=== PATIENT | female | born 1990 | race Two or more races ===

== ENCOUNTER 2017-04-29 19:00 | Inpatient (IN) | payer OTHER ==
[2017-04-29 20:55] VITALS: BMI 33.9
[2017-04-29 22:05] LABS: BASOPHIL 0.2 % (0-2.0); EOSINOPHIL 1.4 % (0-4.5); MCH 26.6 pg (25.7-33.7); MCHC 32.6 g/dl (32.0-36.0); MEAN CELL VOLUME 81.7 fl (80-96); MEAN PLT VOLUME 10.5 fl (7.5-11.1); NEUTROPHILS 76.8 % (42.8-82.8); PLATELET COUNT 153 K/MM3 (134-434); RDW 15.7 % (11.6-15.6); WHITE BLOOD COUNT 9.8 K/mm3 (4.0-10.0)
[2017-04-29] MEDS ORDERED: DINOPROSTONE 10 MG VAGINAL SUPPOSITORY VG ONE (22:08)
[2017-04-29] MEDS ORDERED: DEXTROSE 5%-LACTATED RINGERS 1,000 ML IV SCH (22:15)
[2017-04-29 22:27] LABS: INR 0.94 (0.82-1.09); PROTHROMBIN TIME (PATIENT) 10.3 SEC (9.98-11.88)
[2017-04-29 22:37] LABS: ANION GAP 10 (8-16); CALCIUM 8.9 mg/dL (8.5-10.1); CO2 19 mmol/L (21-32); CREATININE 0.5 mg/dL (0.55-1.02); GLUCOSE,RANDOM 85 mg/dL (74-106)
[2017-04-29 23:17] LABS: HIV 1 & 2 AB NEGATIVE; HIV 1 AGp24 NEGATIVE
--- NOTE | 2017-04-30 00:06 | HP ---
Past Medical History - Primary Care Physician PCP:: Jose Mcmullen - Admission Chief Complaint: 26yo P1 with at EGA 41 weeks admitted for labor indx. 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, CVA, Dementia, Migraine, Multiple Sclerosis, Peripheral Neuropathy, Parkinson's, Seizure, Syncope, TIA, Vertigo, Other Cardiovascular: No: AFIB, Aneurysm, Aortic Insufficiency, Aortic Stenosis, CAD, CHF, Deep Vein Thrombosis, HTN, Hyperlipdemia, [place], Mitral Insufficiency, Mitral Stenosis, Murmur, Pulmonary Hypertension, Other Pulmonary: No: Asthma, Bronchitis, Cancer, COPD, O2 Dependent, Pneumonia, Previously Intubated, Pulmonary Embolus, Pulmonary Fibrosis, Sleep Apnea, Other Gastrointestinal: No: Ascites, Cancer, Constipation, Crohn's Disease, Diverticulitis, Diverticulosis, Esophageal Varices, Gastritis, GERD, GI Bleed, Hemorrhoids, Hiatal Hernia, Inflamatory Bowel Disease, Irritable Bowel Disease, Pancreatitis, Peptic Ulcer Disease, Ulcerative Colitis, Other Renal/: No: Renal Failure, Renal Inusuff, BPH, Cancer, Hematuria, Hemodialysis , Neurogenic Bladder, Renal Calculi, UTI, Other Reproductive: No: Ectopic , Endometriosis, Fibroids, PID, Polycystic Ovary Syndrome, Postmenopausal, Other ...: 2 ...Para: 1 ...Term: 1 ...LMP: 07/11/16 ... Weeks Gestation by Dates: 41 ...EDC by Dates: 04/17/17 Heme/Onc: No: Anemia, B12 Deficiency, Bleeding Disorder, Cancer, Current Chemotherapy, Current Radiation Therapy, Hemochromatosis, Hypercoaguable State, Myeloproliferative Synd, Sickle Cell Disease, Sickle Cell Trait, Thrombocytopenia, Other Infectious Disease: No: AIDS, C-Diff, Herpes Zoster, HIV, MRSA, STD's, Tuberculosis, VREF, Other Psych: No: Addictions, Anxiety, Bipolar, Depression, Panic, Psychosis, Schizophrenia, Other Rheumatology: No: Fibromyalgia, Gout, Lupus, Rheumatoid Arthritis, Sarcoidosis, Vasculitis, Other ENT: No: Allergic Rhinitis, Sinusitis, Other Endocrine: No: Cheshire's Disease, Raman's Disease, Diabetes Insipidus, Diabetes Mellitus, Hyperparathyroidism, Hyperthyroidism, Hypothyroidism, Osteopenia, SIADH, Other Dermatology: No: Basal Cell, Cellulitis, Eczema, Melanoma, Psoriasis, Squamous Cell, Other - Past Surgical History Past Surgical History: Yes: None Hx Myomectomy: No Hx Transabdominal Cerclage: No - Smoking History Smoking history: Never smoked - Alcohol/Substance Use Hx Alcohol Use: No History of Substance Use: reports: None - Social History Usual Living Arrangement: Yes: With Spouse, With Child ADL: Independent History of Recent Travel: No Home Medications - Allergies Allergies/Adverse Reactions: Allergies Allergy/AdvReac Type Severity Reaction Status Date / Time No Known Allergies Allergy Verified 04/29/17 20:38 - Home Medications Home Medications: Ambulatory Orders One Tablet 1 tab PO DAILY 04/29/17 Family Disease History - Family Disease History Family History: Denies Review of Systems Findings/Remarks: Well Appearing - Review of Systems Constitutional: reports: No Symptoms Eyes: reports: No Symptoms HENT: reports: No Symptoms Neck: reports: No Symptoms Cardiovascular: reports: No Symptoms Respiratory: reports: No Symptoms Gastrointestinal: reports: No Symptoms Genitourinary: reports: No Symptoms Breasts: reports: No Symptoms Reported Musculoskeletal: reports: No Symptoms Integumentary: reports: No Symptoms Neurological: reports: No Symptoms Endocrine: reports: No Symptoms Hematology/Lymphatic: reports: No Symptoms Psychiatric: reports: No Symptoms Pain Intensity: 0 Physical Exam - Maternity Vital Signs: Vital Signs Temperature 98.3 F 04/29/17 21:00 Pulse Rate 90 04/29/17 22:00 Respiratory Rate 18 04/29/17 22:00 Blood Pressure 122/79 04/29/17 22:00 O2 Sat by Pulse Oximetry (%) Constitutional: Yes: Well Nourished, No Distress, Calm Eyes: Yes: WNL, Conjunctiva Clear HENT: Yes: WNL, Atraumatic, Normocephalic Neck: Yes: WNL, Supple, Trachea Midline Cardiovascular: Yes: WNL, Regular Rate and Rhythm Lungs: Clear to auscultation, Normal air movement Breast(s): Yes: WNL - Abdominal Exam/OB Fundal Height: 42 Number of Fetuses: Single Presentation: Vertex Contractions: Yes Regularity: Irritability Intensity: Unaware Monitor Mode: External Heart Rate (range): 130 Heart Rate Location: Midline Category: I Accelerations: Non-Uniform Decelerations: None - Vaginal Exam/OB Vaginal Bleediing: No Speculum Exam: No Dilatation (cm): 0 Effacement (%): 20 Amniotic Membrane Status: Intact Presentation: Vertex/Position Station: -4 (Adequate Gynecoid Pelvimetry) - Physical Exam Musculoskeletal: Yes: WNL Extremities: Yes: WNL Edema: Yes Edema: LLE: 1+, RLE: 1+ Integumentary: Yes: WNL Deep Tendon Reflex Grade: Normal +2 ...Motor Strength: WNL Psychiatric: Yes: WNL, Alert, Oriented - Labs Lab Results: CBC, BMP 04/29/17 21:30 04/29/17 21:30 Hemorrhage Risk Assessment - Risk Factors Medium Risk Factors: Yes: None High Risk Factors: Yes: None Risk Score: 1 Risk Level: Medium Risk Imaging - Results Ultrasound: Report Reviewed Assessment/Plan 26yo P1 with at EGA 41wks admitted for labor indxn. The cervical exam is unfavorable. We had a long discussion re: risks, benefits, alternatives of labor indxn. Risks, benefits, alternatives of labor induction vs. expectant managemant were reviewed. Patient was explained that the induction of labor has risks, including but not limited to uterine tachysystole, distress, uterine atony, emergency section, bleeding, injury or even . Patient prefers to proceed with induction of labor. We discussed the medications that may be used including but not limited to Cervidil and/or pitocin. I explained the risks and benefits of meds. The fetus is with Category I tracing and does not require intervention. The patient has adequate pelvimetry. Plan to proceed with cervical ripening using Cervidil, followed by pitocin, as needed.
[2017-04-30] MEDS: DEXTROSE 5%-LACTATED RINGERS 1,000 ML IV SCH (07:10)
[2017-04-30] MEDS ORDERED: AMPICILLIN - 100 ML IVPB ONE (07:15)
[2017-04-30] MEDS ORDERED: TUBERCULIN PPD 5 TU/0.1ML SYRINGE (IN PATIENT USE ONLY) ID ONE (08:00)
[2017-04-30] MEDS ORDERED: AMPICILLIN - 2 GM in SODIUM CHLORIDE 100 ML IVPB ONE (09:05)
--- NOTE | 2017-04-30 09:05 | PN ---
Ante-Partal Exam - Subjective Subjective: No complaints Vital Signs: Vital Signs Temperature 98.4 F 04/30/17 08:00 Pulse Rate 74 04/30/17 08:00 Respiratory Rate 18 04/30/17 08:00 Blood Pressure 128/66 04/30/17 08:00 O2 Sat by Pulse Oximetry (%) Bleeding: No Headache: No Visual changes: No Right upper quadrant pain: No Pain (scale 1-10): 2 - Contractions Contractions: Yes Regularity: Irregular Intensity: Mild Monitor Mode: External - Exam during Labor Heart Rate: 140 Variability: Moderate Heart Rate Location: Midline Category: I Monitor Accelerations: Present Monitor Decelerations: None Exam: Vaginal Dilatation (cm): 1 Effacement (%): 50 Amniotic Membrane Status: Intact Presentation: Vertex Station: -4 Remarks: Adequate pelvimetry - Intrapartum Hemorrhage Risk Medium Risk Factors: None High Risk Factors: None Risk Score: 0 Risk Level: Low Risk - Assessment/Plan Assessment/Plan: 26yo P1 with at 41wk admitted for labor indx. The pt's cervix is more favorable after Cervidil. Plan to start pitocin. Fetus with Category I tracing and requires no intervention.
[2017-04-30] MEDS ORDERED: AMPICILLIN - 1 GM in SODIUM CHLORIDE 100 ML IVPB SCH (09:15)
[2017-04-30] MEDS: OXYTOCIN 15 UNITS/ LR 250 ML 250 ML IVPB SCH (09:20)
[2017-04-30] MEDS: AMPICILLIN - 100 ML IVPB SCH ×4 (11:07→23:15)
--- NOTE | 2017-04-30 18:13 | PN ---
Ante-Partal Exam - Subjective Subjective: Patient reports mild contractions. No leakage of fluid of vaginal bleeding. Vital Signs: Vital Signs Temperature 98.4 F 04/30/17 17:19 Pulse Rate 87 04/30/17 17:19 Respiratory Rate 20 04/30/17 17:19 Blood Pressure 115/78 04/30/17 17:19 O2 Sat by Pulse Oximetry (%) Bleeding: No Headache: No Visual changes: No Right upper quadrant pain: No - Contractions Contractions: Yes Regularity: Regular Intensity: Mild/Mod Monitor Mode: External - Exam during Labor Heart Rate: 135 Variability: Moderate Category: I Monitor Accelerations: Present Monitor Decelerations: None Exam: Vaginal Dilatation (cm): 3 Effacement (%): 50 Station: -3 - Assessment/Plan Assessment/Plan: 26 yo P2 IOL 1. on pitocin, good cervical change, likely early labor 2. category I FHT 3. GBS pitocin, on ampicillin per protocol 4. Will offer pain control on patient's request 5. Will continue expectant management
[2017-04-30] MEDS ORDERED: BUTORPHANOL TARTRATE 1 MG/ML VIAL IVPUSH ONE (19:06)
[2017-04-30] MEDS ORDERED: PROMETHAZINE HCL 25 MG/1 ML VIAL IVPUSH ONE (19:06)
[2017-05-01] MEDS: AMPICILLIN - 100 ML IVPB SCH ×4 (03:15→15:00)
[2017-05-01] MEDS: OXYTOCIN 15 UNITS/ LR 250 ML 250 ML IVPB SCH (07:15)
[2017-05-01] MEDS: DEXTROSE 5%-LACTATED RINGERS 1,000 ML IV SCH (07:45)
[2017-05-01] MEDS ORDERED: ELECTROLYTE-148 SOLN 1,000 ML IV SCH (09:30)
--- NOTE | 2017-05-01 09:31 | PN ---
Ante-Partal Exam - Subjective Subjective: Reports pain well controlled s/p IV medication contractions increasing in intensity Vital Signs: Vital Signs Temperature 98.2 F 05/01/17 06:00 Pulse Rate 80 05/01/17 08:00 Respiratory Rate 20 05/01/17 08:00 Blood Pressure 122/68 05/01/17 08:00 O2 Sat by Pulse Oximetry (%) Bleeding: No Headache: No Visual changes: No Right upper quadrant pain: No - Contractions Contractions: Yes Regularity: Regular Intensity: Mod/Strong - Exam during Labor Heart Rate: 135 Variability: Moderate Category: I Monitor Accelerations: Present Monitor Decelerations: None Exam: Vaginal Dilatation (cm): 4 Effacement (%): 90 Amniotic Membrane Status: Ruptured Amniotic Fluid: Clear Presentation: Vertex Station: -2 - Intrapartum Hemorrhage Risk Medium Risk Factors: Prolonged Oxytocin Use >24hrs High Risk Factors: None Risk Score: 1 Risk Level: Medium Risk - Assessment/Plan Assessment/Plan: 26 P1 IOL 1. s/p cervidil, currently on pitocin per protocol excellent cervical change, likely entering active labor phase 2. GBS positive, on ampicillin 3. Desires epidural for pain relief 4. Category I FHT 5. Will continue expectant management, anticipate vaginal delivery
[2017-05-01] MEDS ORDERED: FENTANYL/BUPIVACAINE/NS/PF - PCEA - 50 ML DISP.SYRIN EP SCH (09:45)
[2017-05-01] MEDS ORDERED: BENZOCAINE 20% 57 GM BOTTLE TP PRN (18:12)
[2017-05-01] MEDS ORDERED: BENZOCAINE 28 GM HEMORRHOIDAL OINTMENT TP PRN (18:12)
[2017-05-01] MEDS ORDERED: WITCH HAZEL 50% (TUCKS) 40 PAD/JAR PAD TP PRN (18:12)
[2017-05-01] MEDS ORDERED: BISACODYL 10 MG SUPP.RECT RC PRN (18:12)
[2017-05-01] MEDS ORDERED: IBUPROFEN 600 MG TABLET (FP) PO PRN (18:12)
[2017-05-01] MEDS ORDERED: ACETAMINOPHEN 325 MG TABLET (FP) PO PRN (18:12)
[2017-05-01] MEDS ORDERED: METHYLERGONOVINE MALEATE 0.2 MG/1 ML AMP IM PRN (18:12)
[2017-05-01] MEDS ORDERED: D5W-LR W/ 20 UNITS OXYTOCIN 1,000 ML IV SCH (18:15)
[2017-05-01] MEDS: FERROUS SO4 325 MG TABLET (FP) PO SCH (21:29)
[2017-05-01 22:30] LABS: BASOPHIL 0.2 % (0-2.0); EOSINOPHIL 0.4 % (0-4.5); MCH 26.3 pg (25.7-33.7); MCHC 32.2 g/dl (32.0-36.0); MEAN CELL VOLUME 81.7 fl (80-96); MEAN PLT VOLUME 10.5 fl (7.5-11.1); NEUTROPHILS 84.3 % (42.8-82.8); PLATELET COUNT 133 K/MM3 (134-434); RDW 15.6 % (11.6-15.6); WHITE BLOOD COUNT 13.2 K/mm3 (4.0-10.0)
[2017-05-01 22:52] LABS: ALK PHOS 178 U/L (45-117); ANION GAP 12 (8-16); BILIRUBIN,TOTAL 0.4 mg/dL (0.2-1.0); CO2 23 mmol/L (21-32); CREATININE 0.9 mg/dL (0.55-1.02); GLUCOSE,RANDOM 82 mg/dL (74-106); SGOT/AST 21 U/L (15-37); SGPT/ALT 10 U/L (12-78); TOT PROT 5.3 g/dl (6.4-8.2)
[2017-05-02] MEDS: CEFAZOLIN (PRE-DOCKED) 50 ML IVPB SCH ×5 (06:30→23:18)
[2017-05-02] MEDS: AMPICILLIN - 100 ML IVPB SCH (06:35)
--- NOTE | 2017-05-02 07:58 | PN ---
Progress Note (short form) - Note Progress Note: PPD 1 had temp 100.8 last night with productive cough Last Vital Signs Temp Pulse Resp BP Pulse Ox 98.6 F 98 H 20 122/69 97 05/02/17 04:36 05/02/17 04:36 05/02/17 04:36 05/02/17 04:36 05/01/17 18:30 CBC, BMP 05/01/17 22:00 05/01/17 22:00 Current Medications Generic Name Dose Route Start Last Admin Trade Name Freq PRN Reason Stop Dose Admin Acetaminophen 650 mg 05/01/17 18:12 05/01/17 21:29 Tylenol - PO 650 mg Q3H PRN Administration PAIN Benzocaine 1 applic 05/01/17 18:12 Americaine Ointment - TP PRN PRN PAIN Benzocaine 1 spray 05/01/17 18:12 Americaine 20% [place] - TP PRN PRN PAIN Bisacodyl 10 mg 05/01/17 18:12 Dulcolax Suppository - RC PRN PRN CONSTIPATION Ferrous Sulfate 325 mg 05/01/17 22:00 05/01/17 21:29 Feosol - PO 325 mg BID RUBEN Administration Cefazolin Sodium 50 mls @ 100 mls/hr 05/01/17 23:30 05/02/17 06:30 Ancef 1gm Ivpb (Pre-Docked) IVPB 100 mls/hr Q6H RUBEN Administration Ibuprofen 600 mg 05/01/17 18:12 Motrin - PO Q4H PRN PAIN Methylergonovine Maleate 0.2 mg 05/01/17 18:12 Methergine Injection - IM Q4H PRN EXCESSIVE BLEEDING (L&D) Multivit/Folic Acid/Iron 1 tab 05/02/17 10:00 Vitamins (Sjr) - PO DAILY RUBEN Senna/Docusate Sodium 1 tablet 05/02/17 22:00 05/01/17 21:30 Pericolace - PO 1 tablet HS PRN Administration CONSTIPATION Witch Christy/Glycerin 1 pad 05/01/17 18:12 Tucks Pads - TP PRN PRN PAIN feels better today, afebrile , breathing easy, abdomen soft, uterus firm, non tender lochia normal no calf tenderness impression pneumonia , PPD 1 on iv antibiotic, ppd , sputum c/s pending plan [place] deep breathing, ambualte . pulm consult pending
[2017-05-02 08:07] LABS: BASOPHIL 0.4 % (0-2.0); EOSINOPHIL 1.1 % (0-4.5); MCHC 32.9 g/dl (32.0-36.0); MEAN CELL VOLUME 82.1 fl (80-96); MEAN PLT VOLUME 9.6 fl (7.5-11.1); NEUTROPHILS 80.5 % (42.8-82.8); PLATELET COUNT 121 K/MM3 (134-434); RDW 16.1 % (11.6-15.6); WHITE BLOOD COUNT 12.2 K/mm3 (4.0-10.0)
[2017-05-02] MEDS: PRENATAL VITAMINS W/ FOLIC ACID TABLET (FP) PO SCH (09:17)
[2017-05-02] MEDS: FERROUS SO4 325 MG TABLET (FP) PO SCH ×2 (09:17→23:17)
--- NOTE | 2017-05-02 14:35 | PN ---
Progress Note (short form) - Note Progress Note: PULMONARY CONSULTATION DICTATED 05/02/17 IMP ? RLL INFILTRATE ? PNEUMONIA,? 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
[2017-05-02] MEDS ORDERED: SENNOSIDES/DOCUSATE COMBO (SENNA PLUS) TABLET (UD) PO PRN (22:00)
[2017-05-03] MEDS: CEFAZOLIN (PRE-DOCKED) 50 ML IVPB SCH (05:41)
[2017-05-03 09:16] VITALS: BP 124/84; PULSE 86; TEMP 98.3
[2017-05-03] MEDS: FERROUS SO4 325 MG TABLET (FP) PO SCH (09:50)
[2017-05-03] MEDS: PRENATAL VITAMINS W/ FOLIC ACID TABLET (FP) PO SCH (09:50)
--- NOTE | 2017-05-03 10:07 | PN ---
Progress Note (short form) - Note Progress Note: no c/o no cough, afebrile, no SOB CBC, BMP 05/02/17 07:40 05/01/17 22:00 Last Vital Signs Temp Pulse Resp BP Pulse Ox 98.3 F 86 20 124/84 97 05/03/17 09:00 05/03/17 09:00 05/03/17 09:00 05/03/17 09:00 05/01/17 18:30 uterus firm, non tender, no cva no calf tenderness plan d/c home on po antibiotic , followup office 4 weeks, follow up with pulm 1 week
--- NOTE | 2017-05-03 10:10 | DS ---
Physical Exam-[employer] Vital Signs: Vital Signs Temperature 98.3 F 05/03/17 09:00 Pulse Rate 86 05/03/17 09:00 Respiratory Rate 20 05/03/17 09:00 Blood Pressure 124/84 05/03/17 09:00 O2 Sat by Pulse Oximetry (%) 97 05/01/17 18:30 Constitutional: Yes: Well Nourished, No Distress, Calm Eyes: Yes: WNL, Conjunctiva Clear, EOM Intact HENT: Yes: WNL, Atraumatic, Normocephalic Neck: Yes: WNL, Supple, Trachea Midline Cardiovascular: Yes: WNL, Regular Rate and Rhythm Respiratory: Yes: WNL, Regular, CTA Bilaterally Gastrointestinal: Yes: WNL ...Rectal Exam: Yes: WNL Renal/: Yes: WNL ....Post : Yes: Uterus firm, Uterus non-tender, Slight lochia rubra Breast(s): Yes: WNL Musculoskeletal: Yes: WNL Extremities: Yes: WNL Edema: No Integumentary: Yes: WNL Neurological: Yes: WNL, Alert, Oriented ...Motor Strength: WNL Psychiatric: Yes: WNL, Alert, Oriented Labs: CBC, BMP 05/02/17 07:40 05/01/17 22:00 Delivery - Delivery Vaginal Delivery: Spontaneous (no complication) Type of Anesthesia: Epidural Episiotomy/Laceration: None EBL (cc): 300 Delivery, Single - Stages of Labor Date 1st Stage Initiatied: 05/01/17 Time 1st Stage Initiated: 05:00 Date 2nd Stage Initiated: 05/01/17 Time 2nd Stage Initiated: 16:30 Date of Delivery: 05/01/17 Time of Delivery: 17:20 Time Placenta Delivered: 17:25 Placenta: Yes: Spontaneous (no complication) - Condition of Commercial Lines Underwriter/Concrete Pointer Present: No Gender: Male Weight: 8 lb 5 oz Position: Left, OA Total Hours ROM (Hrs/Mins): 8HRS 10MIN - 1 Minute Total Score: 8 5 Minutes Total Score: 9 - Feeding Plan Initial Plan: Elected not to breastfeed exclusively throughout hospitalization Discharge Summary Reason For Visit: LABOR Current Active Problems Cough (Acute) Fever (Acute) Pneumonia (Acute) Procedures: Principal: Hospital Course: pneumonia Condition: Good - Instructions Diet, Activity, Other Instructions: regular diet, follow up office 4 weeks Referrals: Daniel Ramírez MD [Staff Physician] - Disposition: HOME - Home Medications Comprehensive Discharge Medication List: Ambulatory Orders One Tablet 1 tab PO DAILY 04/29/17 Ibuprofen [Motrin -] 600 mg PO QID #28 tablet 05/01/17 Cephalexin [Keflex] 500 mg PO TID #21 capsule 05/02/17
--- NOTE | 2017-05-04 23:38 | CONS ---
PULMONARY CONSULTATION DATE OF CONSULTATION: 05/02/2017 REFERRING PHYSICIAN: Daniel Ramírez MD The patient is a 26-year-old female without any significant past medical history, admitted to [facility] on April 30, secondary to intrauterine . Patient underwent normal spontaneous vaginal delivery on May 01, without complications. Postoperative course, the patient had a slight fever. She also complained of a cough since Friday productive of greenish sputum. Did not have any fevers or chills at the time or shortness of breath. She had chest x-ray performed which revealed possible right lower lobe infiltrate. She was started on cefazolin with good clinical response. Stated she did not smoke and there is no history of occupational exposure to chemical or fumes. She denies any history of recent travel. There is no history of DVT or PE in the past. There is no history of pneumonia. PAST MEDICAL HISTORY: Again is unremarkable. 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 REVIEW OF SYSTEMS: No orthopnea. No PND. Positive mild cough. No chest pain. No palpitations. No shortness of breath. No fever at this time. No hemoptysis. PHYSICAL EXAMINATION: General: The patient is a well-developed and nourished female, awake, alert, currently in no acute distress. Vital Signs: T-max is 100.8 on May 01; otherwise, she has been afebrile since. Blood pressure 138/75, respiratory rate is 20, heart rate is 79. HEENT: Normocephalic, atraumatic. Neck: Supple. Heart: Regular. S1, S2. Chest: Clear. Abdomen: Soft. Bowel sounds are positive. Extremities: Bilateral extremity edema. LABORATORY DATA: WBC is 12.2, hemoglobin 10.2, hematocrit 30.8, with a platelet count of 121,000. BUN is 4, creatinine 0.9. Chest x-ray: There is questionable early infiltrate at the right base. IMPRESSION: 1. Cough, mild sputum, possible mild early right lower lobe infiltrate versus acute bronchitis. 2. Status post normal spontaneous vaginal delivery. PLAN: Continue antibiotic therapy, incentive spirometer, sputum C&S. Also, obtain followup chest x-ray as an outpatient. ANITA FERNANDEZ M.D. [id number]
== END 2017-05-03 10:10 | disposition home or self-care (01) | DRG 560 ==
LOC: JLDR 19:00 → J3W 05-01 19:45
PROVIDERS: ADMIT Obstetrics & Gynecology; ATTEND Obstetrics & Gynecology
PROC: 3E0P7GC Introduction of Other Therapeutic Substance into Female Reproductive, Via Natural or Artificial Opening (ICD-10-PCS; 2017-04-29)
PROC: 10E0XZZ Delivery of Products of Conception, External Approach (ICD-10-PCS; principal; 2017-05-01)
DX: O48.0 Post-term pregnancy (principal); O99.824 Streptococcus B carrier state complicating childbirth; Z3A.41 41 weeks gestation of pregnancy; Z37.0 Single live birth
CPT/HCPCS: 36415; 59409; 71020-TC; 80048; 80053; 85025; 85610; 85730; 86593; 86850; 86900; 86901; 87040; 87070; 87086; 87205; 87389; 94010

== ENCOUNTER 2017-05-25 15:41 | Inpatient (IN) | payer OTHER ==
[2017-05-25 16:04] VITALS: BMI 32.9
--- NOTE | 2017-05-25 17:03 | PDOC ---
History of Present Illness - General Chief Complaint: Chest Pain Stated Complaint: CHEST PAIN, SOB Time Seen by Provider: 05/25/17 16:43 History Source: Patient, Friend Exam Limitations: No Limitations - History of Present Illness Initial Comments: 05/25/17 17:05 27F with h/o bronchitis for the past month on antibiotics present to the ED with right sided chest pain on inspiration since yesterday evening. She has been coughing a lot the past week to the point of spitting blood. Also complains of sore throat. Patient was has been prescribed with an antitussive-pseudopheb syrup and Augmentin since yesterday. Was previously on another unknown abx a few weeks ago. No nausea/vomiting/diarrhea/fever. No recent travel, smoking, not on control. 05/25/17 19:44 PAtient revealed 41w induced delivery 3 weeks ago 05/25/17 19:59 Past History - Past Medical History Allergies/Adverse Reactions: Allergies Allergy/AdvReac Type Severity Reaction Status Date / Time No Known Allergies Allergy Verified 05/25/17 16:04 Home Medications: Ambulatory Orders Amoxicillin/Potassium Clav [Augmentin 875-125 Tablet] 1 each PO BID 05/25/17 Brompheniramine/Pseudoephed/Dm [Zmtiqqbbtt-Ovryjryukhj-Ey Syr] 10 ml PO QID 04/05 Asthma: No Cancer: No Cardiac Disorders: No Diabetes: No HTN: No Seizures: No Thyroid Disease: No - Immunization History Immunization Up to Date: Yes - Psycho/Social/Smoking Cessation Hx Suicidal Ideation: No Smoking History: Never smoked Have you smoked in the past 12 months: No Information on smoking cessation initiated: No Hx Alcohol Use: No Drug/Substance Use Hx: No Substance Use Type: None Hx Substance Use Treatment: No Review of Systems - Review of Systems Constitutional: No: Symptoms Reported HEENTM: No: Symptoms Reported Respiratory: Yes: See HPI Cardiac (ROS): No: Symptoms Reported ABD/GI: No: Symptoms Reported : No: Symptoms Reported Integumentary: No: Symptoms Reported Neurological: No: Symptoms reported *Physical Exam - Vital Signs Last Vital Signs Temp Pulse Resp BP Pulse Ox 98.4 F 91 H 17 135/80 100 05/25/17 16:00 05/25/17 16:00 05/25/17 16:00 05/25/17 16:00 05/25/17 16:00 - Physical Exam General Appearance: Yes: Nourished, Appropriately Dressed, Apparent Distress ( patient laying very still to avoid painful respiration) HEENT: positive: EOMI, HANNAH Respiratory/Chest: positive: Chest Tender (on palpation R side), Normal Breath Sounds, Plerual Rub (unclear) Cardiovascular: positive: Regular Rhythm, Regular Rate, S1, S2 Vascular Pulses: Carotid (R): 2+, Carotid (L): 2+, Dorsalis-Pedis (R): 2+, Doralis-Pedis (L): 2+ Gastrointestinal/Abdominal: positive: Normal Bowel Sounds, Flat, Soft. negative : Tender ED Treatment Course - LABORATORY CBC & Chemistry Diagram: 05/25/17 16:58 05/25/17 16:58 Medical Decision Making - Medical Decision Making 05/25/17 19:49 27f with bronchitis presenting to the ED with pleural/musculoskeletal chest pain. Boerhaave syndrome vs PE vs muscle strain CXR report unavailable, no sign of free air in mediastinum WBC slightly elevated consistent with bronchitis r/o CTA, D-dimer, coags UA +1 blood Signed out to Dr. Saad Urbano 05/25/17 19:58 *DC/Admit/Observation/Transfer Diagnosis at time of Disposition: Inspiratory pain
[2017-05-25 17:10] LABS: BASOPHIL 0.5 % (0-2.0); EOSINOPHIL 1.5 % (0-4.5); MCH 26.9 pg (25.7-33.7); MCHC 32.6 g/dl (32.0-36.0); MEAN CELL VOLUME 82.5 fl (80-96); MEAN PLT VOLUME 9.6 fl (7.5-11.1); NEUTROPHILS 77.1 % (42.8-82.8); PLATELET COUNT 203 K/MM3 (134-434); RDW 17.7 % (11.6-15.6); WHITE BLOOD COUNT 12.2 K/mm3 (4.0-10.0)
[2017-05-25] MEDS ORDERED: morphine CARPU-JECT 4 MG/1 ML DISP.SYRIN IVPUSH ONE ×2 (17:32→21:31)
[2017-05-25] MEDS ORDERED: ONDANSETRON 4 MG/2 ML VIAL IVPB ONE (17:32)
[2017-05-25 17:33] LABS: URINE APPEARANCE CLEAR; URINE BILIRUBIN NEGATIVE (NEGATIVE); URINE BLOOD 1+ (NEGATIVE); URINE COLOR LTYELLOW; URINE GLUCOSE (UA) NEGATIVE (NEGATIVE); URINE KETONE NEGATIVE (NEGATIVE); URINE LEUK ESTERASE TRACE (NEGATIVE); URINE NITRITE NEGATIVE (NEGATIVE); URINE PROTEIN NEGATIVE (NEGATIVE); URINE UROBILINOGEN NEGATIVE mg/dL (0.2-1.0)
[2017-05-25 17:35] LABS: URINE MUCUS RARE; URINE RBC 1 /hpf (0-3); URINE WBC 3 /hpf (3-5)
[2017-05-25] MEDS ORDERED: ONDANSETRON 4 MG/2 ML VIAL ONE (17:38)
[2017-05-25] MEDS ORDERED: morphine CARPU-JECT 4 MG/1 ML DISP.SYRIN ONE ×2 (17:38→22:01)
[2017-05-25 17:43] LABS: ALBUMIN 3.7 g/dl (3.4-5.0); ANION GAP 12 (8-16); BILIRUBIN,TOTAL 0.6 mg/dL (0.2-1.0); CALCIUM 9.2 mg/dL (8.5-10.1); CO2 24 mmol/L (21-32); CREATININE 0.6 mg/dL (0.55-1.02); GLUCOSE,RANDOM 89 mg/dL (74-106); SGOT/AST 20 U/L (15-37); SGPT/ALT 22 U/L (12-78); TOT PROT 7.7 g/dl (6.4-8.2)
[2017-05-25 17:44] LABS: ALK PHOS 112 U/L (45-117)
--- NOTE | 2017-05-25 18:39 | PDOC ---
Attending Attestation - Resident Resident Name: Bassam Butler - ED Attending Attestation I have performed the following: I have examined & evaluated the patient, The case was reviewed & discussed with the resident, I agree w/resident's findings & plan, Exceptions are as noted - HPI HPI: 05/25/17 18:38 27 yo co chest pain - Physicial Exam PE: 05/25/17 18:38 NAD, Nontoxic, some of the chest pain is reproducible...... - Medical Decision Making 05/25/17 18:[address] Navarro Assessment and Plan
--- NOTE | 2017-05-25 19:48 | PDOC ---
*Physical Exam - Vital Signs Last Vital Signs Temp Pulse Resp BP Pulse Ox 98.4 F 91 H 17 135/80 100 05/25/17 16:00 05/25/17 16:00 05/25/17 16:00 05/25/17 16:00 05/25/17 16:00 ED Treatment Course - LABORATORY CBC & Chemistry Diagram: 05/25/17 16:58 05/25/17 16:58 - ADDITIONAL ORDERS Additional order review: Laboratory Results 05/25/17 05/25/17 17:20 16:58 Sodium 136 Potassium 4.3 D Chloride 100 Carbon Dioxide 24 Anion Gap 12 BUN 9 D Creatinine 0.6 D Creat Clearance w eGFR > 60 Random Glucose 89 Calcium 9.2 Total Bilirubin 0.6 D AST 20 ALT 22 D Alkaline Phosphatase 112 D Total Protein 7.7 D Albumin 3.7 D Urine Color Ltyellow Urine Appearance Clear Urine pH 6.0 Urine Protein Negative Urine Glucose (UA) Negative Urine Ketones Negative Urine Blood 1+ H Urine Nitrite Negative Urine Bilirubin Negative Urine Urobilinogen Negative Ur Leukocyte Esterase Trace Urine RBC 1 Urine WBC 3 Ur Epithelial Cells Moderate Urine Mucus Rare Urine HCG, Qual Negative 05/25/17 16:58 RBC 4.54 D MCV 82.5 MCHC 32.6 RDW 17.7 H MPV 9.6 Neutrophils % 77.1 Lymphocytes % 14.4 Monocytes % 6.5 Eosinophils % 1.5 Basophils % 0.5 - Medications Given in the ED: ED Medications Discontinued Medications Generic Name Dose Route Start Last Admin Trade Name Freq PRN Reason Stop Dose Admin Morphine Sulfate 4 mg 05/25/17 17:32 05/25/17 17:48 Morphine Injection - IVPUSH 05/25/17 17:33 4 mg ONCE ONE Administration Ondansetron HCl 4 mg 05/25/17 17:32 05/25/17 17:48 Zofran Injection IVPB 05/25/17 17:33 4 mg ONCE ONE Administration Medical Decision Making - Medical Decision Making Patient signed out in stable condition by Dr. Butler at 19:30. Originally she was feeling better and the plan was to send her home but her lingering possibly pleuritic pain was more concerning in light of her recent delivery of child 3 weeks prior. A D-Dimer was ordered. 05/25/17 19:45 05/25/17 21:35 CTA returned positive for PE segmental RLL with possible infarct and/or PNA. Given 140 lovenox once and 2 MG morphine for pain control (pressures slightly soft at 97/50). Will admit patient for PE treatment. 05/25/17 21:[address] Quezada and will admit patient for further PE treatment. *DC/Admit/Observation/Transfer Diagnosis at time of Disposition: Inspiratory pain, Pulmonary embolism - Discharge Dispostion Admit: Yes - Attestations Physician Attestion: I, Dr. Donaldo Urbano, attest that this document has been prepared under my direction and personally reviewed by me in its entirety. I further attest, that it accurately reflects all work, treatment, procedures and medical decision -making performed by me. 05/25/17 21:58
[2017-05-25 19:54] LABS: INR 0.99 (0.82-1.09); PROTHROMBIN TIME (PATIENT) 10.9 SEC (9.98-11.88)
[2017-05-25 19:57] LABS: ACTIVATED PTT 30.2 SECONDS (26.9-34.4)
[2017-05-25] MEDS ORDERED: ENOXAPARIN NA (PORCINE) 40 MG/0.4 ML DISP.SYRIN SQ ONE (21:24)
[2017-05-25] MEDS ORDERED: ENOXAPARIN NA (PORCINE) 60 MG/0.6 ML DISP.SYRIN SQ ONE (21:40)
[2017-05-25] MEDS ORDERED: morphine CARPU-JECT 2 MG/1 ML DISP.SYRIN IVPUSH ONE (21:42)
[2017-05-25] MEDS ORDERED: SODIUM CHLORIDE 0.9% 1000 ML INFUS.BAG IV ONE (21:43)
[2017-05-25] MEDS ORDERED: ENOXAPARIN NA (PORCINE) 80 MG/0.8 ML DISP.SYRIN SQ SCH (22:00)
--- NOTE | 2017-05-26 07:59 | HP ---
Admitting History and Physical - Admission Chief Complaint: 27 y.o F -3 weeks , presented to the ER with 3 days with pleuritic chest pain, sore throat and hemophysis-seen in the urgicare and was given PO Augmentin ans cough syrup, but CP continued and the patient went to the ER [facility].. In the Er room CTA was significant for right RLL pulmonary embolism, RLL infiltrate and small pleural effusion. The patient reports that she developed cough but no CP 1 week prior to delivery and after delivery was treated with Cephalexin. She was seen in the office several days post delivery with cough and wheezing without any CP-and was treated with steroids PO. 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: No: Alzheimer's, CVA, Dementia, Migraine, Multiple Sclerosis, Peripheral Neuropathy, Parkinson's, Seizure, Syncope, TIA, Vertigo, Other Cardiovascular: No: AFIB, Aneurysm, Aortic Insufficiency, Aortic Stenosis, CAD, CHF, Deep Vein Thrombosis, HTN, Hyperlipdemia, ND, Mitral Insufficiency, Mitral Stenosis, Murmur, Pulmonary Hypertension, Other Pulmonary: Yes: Other (Acute bronchitis) Gastrointestinal: No: Ascites, Cancer, Constipation, Crohn's Disease, Diverticulitis, Diverticulosis, Esophageal Varices, Gastritis, GERD, GI Bleed, Hemorrhoids, Hiatal Hernia, Inflamatory Bowel Disease, Irritable Bowel Disease, Pancreatitis, Peptic Ulcer Disease, Ulcerative Colitis, Other Hepatobiliary: No: Cirrhosis, Cholelithiasis, Cholecystitis, Choledocholithiasis , Hepatitis A, Hepatitis B, Hepatitis C, Other Renal/: No: Renal Failure, Renal Inusuff, BPH, Cancer, Hematuria, Hemodialysis , Neurogenic Bladder, Renal Calculi, UTI, Other Reproductive: Yes: Other (Vaginal delivery 05/01/17) Psych: No: Addictions, Anxiety, Bipolar, Depression, Panic, Psychosis, Schizophrenia, Other ENT: No: Allergic Rhinitis, Sinusitis, Other Endocrine: No: Ware's Disease, [place]'s Disease, Diabetes Insipidus, Diabetes Mellitus, Hyperparathyroidism, Hyperthyroidism, Hypothyroidism, Osteopenia, SIADH, Other - Past Surgical History Past Surgical History: Yes: None - Smoking History Smoking history: Never smoked Have you smoked in the past 12 months: No - Alcohol/Substance Use Hx Alcohol Use: No History of Substance Use: reports: None - Social History ADL: Independent History of Recent Travel: No Home Medications - Allergies Allergies/Adverse Reactions: Allergies Allergy/AdvReac Type Severity Reaction Status Date / Time No Known Allergies Allergy Verified 05/25/17 16:04 - Home Medications Home Medications: Ambulatory Orders Amoxicillin/Potassium Clav [Augmentin 875-125 Tablet] 1 each PO BID 05/25/17 Brompheniramine/Pseudoephed/Dm [Mqlrzxqqck-Rowvtlnkorn-El Syr] 10 ml PO QID 04/05 Family Disease History - Family Disease History Family History: Unremarkable Review of Systems - Review of Systems Constitutional: denies: No Symptoms, Chills, Diaphoresis, Fever, Lethargy, Loss of Appetite, Malaise, Night Sweats, Unintentional Wgt. Loss, Weakness, Other Eyes: denies: No Symptoms, Blind Spots, Blurred Vision, Double Vision, Eye Pain , Floaters, Photophobia, Recent Change in Vision, Other HENT: reports: No Symptoms. denies: Difficult Swallowing, Ear Discharge, Ear Pain, Epistaxis, Gingival Bleeding, Hearing Loss, Mouth Swelling, Nasal Congestion, Ocular Prosthesis, Throat Pain, Toothache, Ringing in Ears, Other Neck: denies: Decreased ROM, Lumps, Pain on Movement, Stiffness, Swollen Glands , Tenderness, Other Cardiovascular: reports: Chest Pain (Right pleuritic) Respiratory: reports: Cough, Hemoptysis. denies: SOB, SOB on Exertion Gastrointestinal: reports: No Symptoms Genitourinary: reports: No Symptoms Breasts: reports: No Symptoms Reported. denies: See HPI, Breast Implants, Discharge from Nipple, Lumps, Pain, Skin Changes, Other Integumentary: reports: No Symptoms Neurological: reports: No Symptoms Endocrine: reports: No Symptoms Hematology/Lymphatic: reports: No Symptoms Psychiatric: reports: No Symptoms Physical Examination Vital Signs: Vital Signs Temperature 98.4 F 05/25/17 23:40 Pulse Rate 80 05/26/17 05:44 Respiratory Rate 19 05/26/17 05:44 Blood Pressure 94/54 05/26/17 05:44 O2 Sat by Pulse Oximetry (%) 98 05/26/17 03:30 Constitutional: Yes: Well Nourished, Anxious, Mild Distress Eyes: Yes: Conjunctiva Clear, EOM Intact HENT: Yes: Atraumatic, Normocephalic. No: Drooling, Hoarseness, Nasal Congestion Neck: Yes: Supple, Trachea Midline Respiratory: Yes: Regular, Diminished (RLL), Rales (few RLL) Gastrointestinal: Yes: Normal Bowel Sounds, Soft. No: Abdomen, Obese, Ascites, Palpable Mass, Tenderness ...Rectal Exam: Yes: Deferred Renal/: No: Anuria, Bladder Distention, CVA Tenderness - Left, CVA Tenderness - Right Musculoskeletal: Yes: WNL Extremities: Yes: WNL Edema: No Peripheral Pulses WNL: Yes Integumentary: Yes: WNL Neurological: Yes: WNL ...Motor Strength: WNL Psychiatric: Yes: WNL Labs: Laboratory Results - last 24 hr 05/25/17 05/25/17 05/25/17 16:58 16:58 16:59 WBC 12.2 H RBC 4.54 D Hgb 12.2 D Hct 37.5 D MCV 82.5 MCH 26.9 MCHC 32.6 RDW 17.7 H Plt Count 203 D MPV 9.6 Neutrophils % 77.1 Lymphocytes % 14.4 Monocytes % 6.5 Eosinophils % 1.5 Basophils % 0.5 INR 0.99 PTT (Actin FS) 30.2 D-Dimer 836 H Sodium 136 Potassium 4.3 D Chloride 100 Carbon Dioxide 24 Anion Gap 12 BUN 9 D Creatinine 0.6 D Creat Clearance w eGFR > 60 Random Glucose 89 Calcium 9.2 Total Bilirubin 0.6 D AST 20 ALT 22 D Alkaline Phosphatase 112 D Total Protein 7.7 D Albumin 3.7 D Urine Color Urine Appearance Urine pH Ur Specific [place] Urine Protein Urine Glucose (UA) Urine Ketones Urine Blood Urine Nitrite Urine Bilirubin Urine Urobilinogen Ur Leukocyte Esterase Urine RBC Urine WBC Ur Epithelial Cells Urine Mucus Urine HCG, Qual 05/25/17 17:20 WBC RBC Hgb Hct MCV MCH MCHC RDW Plt Count MPV Neutrophils % Lymphocytes % Monocytes % Eosinophils % Basophils % INR PTT (Actin FS) D-Dimer Sodium Potassium Chloride Carbon Dioxide Anion Gap BUN Creatinine Creat Clearance w eGFR Random Glucose Calcium Total Bilirubin AST ALT Alkaline Phosphatase Total Protein Albumin Urine Color Ltyellow Urine Appearance Clear Urine pH 6.0 Ur Specific [place] 1.010 Urine Protein Negative Urine Glucose (UA) Negative Urine Ketones Negative Urine Blood 1+ H Urine Nitrite Negative Urine Bilirubin Negative Urine Urobilinogen Negative Ur Leukocyte Esterase Trace Urine RBC 1 Urine WBC 3 Ur Epithelial Cells Moderate Urine Mucus Rare Urine HCG, Qual Negative Imaging - Results Chest X-ray: Image Reviewed Cat Scan: Image Reviewed Problem List - Problems (1) Pulmonary embolism Assessment/Plan: Pulmonary embolism on CTA-reviewed with radiology. Noted elevated D-Dimers, Pt was started on Lovenox Pulmonary consult Hematology Code(s): I26.99 - OTHER PULMONARY EMBOLISM WITHOUT ACUTE COR PULMONALE Qualifiers: Chronicity: acute Acute cor pulmonale presence: without acute cor pulmonale (2) Pneumonia Assessment/Plan: Likely RLL infiltrate and small effusion due to PE. Possibly PNA RLL. R/o aspiration. Code(s): J18.9 - PNEUMONIA, UNSPECIFIED ORGANISM Qualifiers: Pneumonia type: due to unspecified organism Laterality: right Lung location: lower lobe of lung Qualified Code(s): J18.1 - Lobar pneumonia, unspecified organism
[2017-05-26] MEDS ORDERED: ENOXAPARIN NA (PORCINE) 80 MG/0.8 ML DISP.SYRIN SQ SCH (10:00)
[2017-05-26] MEDS: AMPICILLIN NA/SULBACTAM NA 1.5 GM in SODIUM CHLORIDE 100 ML IVPB SCH ×2 (10:43→21:11)
[2017-05-26] MEDS ORDERED: ACETAMINOPHEN 325 MG TABLET (FP) PO PRN ×2 (11:17→19:39)
--- NOTE | 2017-05-26 14:41 | PN ---
Progress Note (short form) - Note Progress Note: PULMONARY CONSULTATION DICTATED 05/26/17 IMP ACUTE PULMONARY EMBOLISM LIKELY PROVOKED POST - 3 WEEKS RLL PNEUMONIA HEMOPTYSIS SECONDARY TO ABOVE PLAN LOVENOX ANTIBIOTICS O2 ECHO CE W/U FOR HYPERCOAGULABLE STATE QUANTIFY HEMOPTYSIS DR FERNANDEZ Problem List - Problems (1) Inspiratory pain Code(s): R07.1 - CHEST PAIN ON BREATHING (2) Pulmonary embolism Code(s): I26.99 - OTHER PULMONARY EMBOLISM WITHOUT ACUTE COR PULMONALE Qualifiers: Chronicity: acute Acute cor pulmonale presence: without acute cor pulmonale (3) Cough Code(s): R05 - COUGH (4) Pneumonia Code(s): J18.9 - PNEUMONIA, UNSPECIFIED ORGANISM Qualifiers: Pneumonia type: due to unspecified organism Laterality: right Lung location: lower lobe of lung Qualified Code(s): J18.1 - Lobar pneumonia, unspecified organism (5) Hemoptysis Code(s): R04.2 - HEMOPTYSIS
--- NOTE | 2017-05-26 16:37 | CONSULT ---
Consult Consult Specialty:: Hematology/Oncology Referred by:: ER Reason for Consultation:: PE - History of Present Illness History of Present Illness: is a 27 year old AA female who is three weeks post comes in with Shortness of breath, pleuritic chest pain ,hemoptysis ,and was being treated PNA as an OP, now is diagnosed with PE. 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: Alzheimer's, CVA, Dementia, Migraine, Multiple Sclerosis, Peripheral Neuropathy, Parkinson's, Seizure, Syncope, TIA, Vertigo, Other Cardio/Vascular: No: AFIB, Aneurysm, Aortic Insufficiency, Aortic Stenosis, CAD , CHF, Deep Vein Thrombosis, HTN, Hyperlipdemia, AL, Mitral Insufficiency, Mitral Stenosis, Murmur, Pulmonary Hypertension, Other Pulmonary: Yes: Other (Acute bronchitis) Gastrointestinal: No: Ascites, Cancer, Constipation, Crohn's Disease, Diverticulitis, Diverticulosis, Esophageal Varices, Gastritis, GERD, GI Bleed, Hemorrhoids, Hiatal Hernia, Inflamatory Bowel Disease, Irritable Bowel Disease, Pancreatitis, Peptic Ulcer Disease, Ulcerative Colitis, Other Hepatobiliary: No: Cirrhosis, Cholelithiasis, Cholecystitis, Choledocholithiasis , Hepatitis A, Hepatitis B, Hepatitis C, Other Renal/: No: Renal Failure, Renal Inusuff, BPH, Cancer, Hematuria, Hemodialysis , Neurogenic Bladder, Renal Calculi, UTI, Other ...: (POST 05/01/17) Psych: No: Addictions, Anxiety, Bipolar, Depression, Panic, Psychosis, Schizophrenia, Other ENT: No: Allergic Rhinitis, Sinusitis, Other Endocrine: No: Brayden's Disease, [place]'s Disease, Diabetes Insipidus, Diabetes Mellitus, Hyperparathyroidism, Hyperthyroidism, Hypothyroidism, Osteopenia, SIADH, Other - Past Surgical History Past Surgical History: Yes: None - Alcohol/Substance Use Hx Alcohol Use: No History of Substance Use: reports: None - Smoking History Smoking history: Never smoked Have you smoked in the past 12 months: No - Social History ADL: Independent History of Recent Travel: No Home Medications - Allergies Allergies/Adverse Reactions: Allergies Allergy/AdvReac Type Severity Reaction Status Date / Time No Known Allergies Allergy Verified 05/25/17 16:04 - Home Medications Home Medications: Ambulatory Orders Amoxicillin/Potassium Clav [Augmentin 875-125 Tablet] 1 each PO BID 05/25/17 Brompheniramine/Pseudoephed/Dm [Ueycgvhhve-Ccdrzyqomay-Ob Syr] 10 ml PO QID 04/05 Family Disease History - Family Disease History Family History: Denies (denies any family hx of blood clots) Review of Systems - Review of Systems Constitutional: reports: Diaphoresis, Lethargy, Malaise HENT: reports: No Symptoms Respiratory: reports: Hemoptysis Physical Exam Vital Signs: Vital Signs Temperature 99.3 F 05/26/17 12:07 Pulse Rate 99 H 05/26/17 12:07 Respiratory Rate 20 05/26/17 12:07 Blood Pressure 103/67 05/26/17 12:07 O2 Sat by Pulse Oximetry (%) 96 05/26/17 12:07 Constitutional: Yes: Moderate Distress Eyes: Yes: Conjunctiva Clear HENT: Yes: Atraumatic, Normocephalic Neck: Yes: Supple, Trachea Midline Cardiovascular: Yes: Tachycardia Respiratory: Yes: Regular, CTA Bilaterally Gastrointestinal: Yes: Normal Bowel Sounds, Soft, Abdomen, Obese Edema: No (No calf tenderness) Psychiatric: Yes: Alert, Oriented Imaging - Results Cat Scan: Report Reviewed Ultrasound: Report Reviewed Assessment/Plan Assessment/Plan: Pulmonary Embolism Possible PNA/Infarct 3weeks post- Hemoptysis. Pleuritic chest pain in the setting of PE/Pulm infarct Plan: -PE ,likely provoked in the setting of being 3weeks post-. -Therapeutic doses of Lovenox, will change to 1mg/kg/bid dosing from the morning -Hemoptysis likely in the setting of PNA/PE/Pulm infarct, cbc monitoring -US of the LE -TTE -PNA Rx as per primary/Pulm. -Thrombophilia work-up, except for protein C/S and AT III (as false results in the setting of active clot) -Pain control for the pleuritic chest pain. -OB to be made aware. -if stable in the next few days, will bridge to coumadin or start NOACs( pt not breast feeding). -will follow. Discussed with PMD.
[2017-05-26] MEDS ORDERED: guaiFENesin/CODEINE 5 ML UNIT-DOSE CUPS PO ONE (17:43)
[2017-05-26] MEDS: guaiFENesin/CODEINE 5 ML UNIT-DOSE CUPS PO PRN (17:51)
[2017-05-26] MEDS ORDERED: ACETAMINOPHEN 325 MG TABLET (FP) ONE (18:10)
[2017-05-26 18:27] LABS: CPK 248 IU/L (26-192); TROPONIN I < 0.02 ng/ml (0.00-0.05)
[2017-05-26] MEDS: oxyCODONE HCL 5 MG TABLET PO PRN (19:51)
--- NOTE | 2017-05-26 20:48 | CONS ---
DATE OF CONSULTATION: 05/26/2017 PULMONARY CONSULTATION REFERRING PHYSICIAN: Caleb Quezada M.D. HISTORY OF PRESENT ILLNESS: The patient is a 27-year-old female status 3 weeks without any significant past medical history, admitted to [facility] with complaint of 2-day history of pleuritic chest pain. She also had hemoptysis. Patient was recently discharged from [facility] approximately 3 weeks status post normal spontaneous vaginal delivery. At times she had a chest x-ray performed which was within normal limits. She was discharged home and stayed about a week prior to when she started developing cough, is nonproductive. She apparently prescribed Keflex. She was a few days post discharge, apparently she started developing cough and wheezing without any chest pain. She was treated with steroids and Keflex with initial improvement. She was doing well until the past few days when again she started developing chest discomfort. She went to an urgent center and was prescribed another antibiotics. Yesterday started developing right sided pleuritic chest pain. She also complained of cough and hemoptysis. Denies any history of tobacco use. There is no history of DVT or PE in the past. There is no history of occupational exposure. Denies any family history of PE. Patient underwent CEA in the chest which revealed a right lower lobe pulmonary embolism and right lower lobe infiltrate and effusion. She was found on anticoagulation. As stated before, she is a nonsmoker, there is no history of occupational exposure to chemicals or fumes. There is no history of recent travel. Denies any history of DVT in the past. There is no history of oral contraceptive use. PAST MEDICAL HISTORY: Again is unremarkable except for a normal spontaneous vaginal delivery May 01. No occupational exposures. She was not a smoker. REVIEW OF SYSTEMS: No shortness of breath. Positive right sided chest pain. Positive cough. Positive hemoptysis. Positive chills. Sore throat. Chest pain. No nausea. No vomiting. No diaphoreses. CURRENT MEDICATIONS: Include Unasyn, Lovenox Colace, Percocet. PHYSICAL EXAMINATION: General: The patient is a well-developed, well-nourished female awake, alert, in no acute distress. Vital signs: She is currently afebrile. Heart rate is 99, blood pressure 103/67, respiratory rate 20, 204 pounds, and O2 saturation is 96% on room air. HEENT: Head is normocephalic, atraumatic. Neck: Supple. Heart: Regular. S1, S2. Chest: A few crackles at bilateral bases. Abdomen: Soft. Bowel sounds positive. Extremities: No cyanosis, edema. LABORATORY: Vascular duplex negative DVT. Chemistries: WBC 12.2, hemoglobin 12.2, hematocrit 37.5, platelet count 203,000. BUN 9, creatinine 0.6. Chest CTA PE in the right lower lobe pulmonary artery. There is infiltrate noticed at the right base. IMPRESSION: 1. Right lower lobe pulmonary embolism, most likely provoked secondary to recent intrauterine . 2. Right lower lobe pneumonia. 3. Hemoptysis most likely secondary to pulmonary embolism. PLAN: Lovenox, supplemental O2, antibiotic therapy, cultures, sputum C&S, follow up chest x-rays, nasal O2, echocardiogram, cardiac enzymes. ANITA FERNANDEZ M.D. [id number]
[2017-05-26] MEDS ORDERED: SENNOSIDES/DOCUSATE COMBO (SENNA PLUS) TABLET (UD) PO SCH (22:00)
[2017-05-27] MEDS: guaiFENesin/CODEINE 5 ML UNIT-DOSE CUPS PO PRN ×3 (01:24→18:16)
[2017-05-27] MEDS: AMPICILLIN NA/SULBACTAM NA 1.5 GM in SODIUM CHLORIDE 100 ML IVPB SCH ×3 (02:47→18:16)
[2017-05-27] MEDS: oxyCODONE HCL 5 MG TABLET PO PRN (05:47)
[2017-05-27 07:15] LABS: BASOPHIL 0.3 % (0-2.0); EOSINOPHIL 3.4 % (0-4.5); MEAN CELL VOLUME 81.7 fl (80-96); MEAN PLT VOLUME 8.8 fl (7.5-11.1); NEUTROPHILS 76.1 % (42.8-82.8); PLATELET COUNT 188 K/MM3 (134-434); RDW 17.6 % (11.6-15.6); WHITE BLOOD COUNT 9.2 K/mm3 (4.0-10.0)
[2017-05-27 07:29] LABS: INR 1.13 (0.82-1.09); PROTHROMBIN TIME (PATIENT) 12.5 SEC (9.98-11.88)
[2017-05-27 07:32] LABS: ACTIVATED PTT 31.3 SECONDS (26.9-34.4)
[2017-05-27 07:50] LABS: ALBUMIN 2.8 g/dl (3.4-5.0); ANION GAP 8 (8-16); CALCIUM 8.5 mg/dL (8.5-10.1); CO2 27 mmol/L (21-32); GLUCOSE,RANDOM 100 mg/dL (74-106)
[2017-05-27 07:54] LABS: ALK PHOS 95 U/L (45-117); BILIRUBIN,TOTAL 0.6 mg/dL (0.2-1.0); CREATININE 0.5 mg/dL (0.55-1.02); SGOT/AST 21 U/L (15-37); SGPT/ALT 21 U/L (12-78); TOT PROT 6.9 g/dl (6.4-8.2)
[2017-05-27] MEDS ORDERED: PT OWN MED DRAWER 7, Y5N ONE ×2 (09:49→18:03)
[2017-05-27] MEDS: ENOXAPARIN NA (PORCINE) 100 MG/1 ML DISP.SYRIN SQ SCH ×2 (10:00→21:04)
--- NOTE | 2017-05-27 11:18 | PN ---
Progress Note, Physician History of Present Illness: pulmonary alert,feeling better.less cp,-hemoptysis. echo nl rv function,mild pulmonary htn - Current Medication List Current Medications: Active Medications Acetaminophen (Tylenol -) 650 mg PO Q6H PRN PRN Reason: pain Last Admin: 05/26/17 18:13 Dose: 650 mg Acetaminophen (Tylenol -) 325 mg PO Q6H PRN PRN Reason: PAIN 5-10 Last Admin: 05/27/17 05:52 Dose: 325 mg Enoxaparin Sodium (Lovenox -) 90 mg SQ BID RUBEN Last Admin: 05/27/17 10:00 Dose: 90 mg Guaifenesin/Codeine Phosphate (Robitussin Ac -) 5 ml PO TID PRN Last Admin: 05/27/17 10:50 Dose: 5 ml Ampicillin Sodium/Sulbactam (Sodium 1.5 gm/ Sodium Chloride) 100 mls @ 200 mls/ hr IVPB Q8H-IV RUBEN Last Admin: 05/27/17 10:00 Dose: 200 mls/hr Oxycodone HCl (Roxicodone -) 5 mg PO Q6H PRN PRN Reason: PAIN SCALE 5-10 Last Admin: 05/27/17 05:47 Dose: 5 mg - Objective Vital Signs: Vital Signs Temperature 98.4 F 05/27/17 10:00 Pulse Rate 92 H 05/27/17 10:00 Respiratory Rate 22 05/27/17 10:00 Blood Pressure 110/62 05/27/17 10:00 O2 Sat by Pulse Oximetry (%) 100 05/27/17 09:00 Constitutional: Yes: Well Nourished, Calm Eyes: Yes: WNL HENT: Yes: WNL Neck: Yes: WNL Cardiovascular: Yes: Regular Rate and Rhythm, S1, S2 Respiratory: Yes: Rales (CRACKLES R BASE) Gastrointestinal: Yes: Normal Bowel Sounds, Soft Extremities: Yes: WNL Edema: No Labs: CBC, BMP 05/27/17 05:35 05/27/17 05:35 INR, PTT INR 1.13 (0.82-1.09) 05/27/17 05:35 Problem List - Problems (1) Inspiratory pain Code(s): R07.1 - CHEST PAIN ON BREATHING (2) Pulmonary embolism Code(s): I26.99 - OTHER PULMONARY EMBOLISM WITHOUT ACUTE COR PULMONALE Qualifiers: Chronicity: acute Acute cor pulmonale presence: without acute cor pulmonale (3) Cough Code(s): R05 - COUGH (4) Pneumonia Code(s): J18.9 - PNEUMONIA, UNSPECIFIED ORGANISM Qualifiers: Pneumonia type: due to unspecified organism Laterality: right Lung location: lower lobe of lung Qualified Code(s): J18.1 - Lobar pneumonia, unspecified organism (5) Hemoptysis Code(s): R04.2 - HEMOPTYSIS Assessment/Plan MP ACUTE PULMONARY EMBOLISM LIKELY PROVOKED POST - 3 WEEKS RLL PNEUMONIA HEMOPTYSIS IMPROVING PULMONARY HTN PLAN LOVENOX ANTIBIOTICS O2 W/U FOR HYPERCOAGULABLE STATE QUANTIFY HEMOPTYSIS DR FERNANDEZ Problem List - Problems (1) Inspiratory pain Code(s): R07.1 - CHEST PAIN ON BREATHING (2) Pulmonary embolism Code(s): I26.99 - OTHER PULMONARY EMBOLISM WITHOUT ACUTE COR PULMONALE Qualifiers: Chronicity: acute Acute cor pulmonale presence: without acute cor pulmonale (3) Cough Code(s): R05 - COUGH (4) Pneumonia Code(s): J18.9 - PNEUMONIA, UNSPECIFIED ORGANISM Qualifiers: Pneumonia type: due to unspecified organism Laterality: right Lung location: lower lobe of lung Qualified Code(s): J18.1 - Lobar pneumonia, unspecified organism (5) Hemoptysis Code(s): R04.2 - HEMOPTYSIS
--- NOTE | 2017-05-27 12:50 | PN ---
Progress Note (short form) - Note Progress Note: Pleuritic chest pain, cough, hemophthisis slightly improved Pt discussed with dr lentz. Vital Signs - 24 hr 05/26/17 05/26/17 05/26/17 18:00 18:07 21:00 Temperature 100.8 F H 100.4 F H Pulse Rate 106 H Pulse Rate [ 107 H Left Radial] Respiratory 19 20 Rate Blood Pressure 105/59 Blood Pressure 120/69 [Left Arm] O2 Sat by Pulse 97 99 Oximetry (%) 05/26/17 05/27/17 05/27/17 22:00 02:41 06:00 Temperature 99.8 F H 97.8 F 99.5 F Pulse Rate 104 H 87 94 H Pulse Rate [ Left Radial] Respiratory 19 20 19 Rate Blood Pressure 102/62 100/61 103/60 Blood Pressure [Left Arm] O2 Sat by Pulse 95 Oximetry (%) 05/27/17 05/27/17 09:00 10:00 Temperature 98.4 F Pulse Rate 92 H Pulse Rate [ Left Radial] Respiratory 19 22 Rate Blood Pressure 110/62 Blood Pressure [Left Arm] O2 Sat by Pulse 100 Oximetry (%) Lungs -decreased BS at the right base Heart S1S2 regular Abdomen soft, NT Ext-no CCE Echo PAP 30mm. Hg.-40 mmHg Laboratory Results - last 24 hr 05/26/17 05/27/17 05/27/17 17:30 05:35 05:35 WBC 9.2 RBC 4.24 Hgb 11.4 Hct 34.6 MCV 81.7 MCH 27.0 MCHC 33.0 RDW 17.6 H Plt Count 188 MPV 8.8 Neutrophils % 76.1 Lymphocytes % 13.1 Monocytes % 7.1 Eosinophils % 3.4 D Basophils % 0.3 INR PTT (Actin FS) Sodium 138 Potassium 3.7 Chloride 103 Carbon Dioxide 27 Anion Gap 8 BUN 6 L D Creatinine 0.5 L Creat Clearance w eGFR > 60 Random Glucose 100 Calcium 8.5 Total Bilirubin 0.6 AST 21 ALT 21 Alkaline Phosphatase 95 Creatine Kinase 248 H Creatine Kinase Index 0.4 CK-MB (CK-2) < 1.000 Troponin I < 0.02 Total Protein 6.9 Albumin 2.8 L D 05/27/17 05:35 WBC RBC Hgb Hct MCV MCH MCHC RDW Plt Count MPV Neutrophils % Lymphocytes % Monocytes % Eosinophils % Basophils % INR 1.13 PTT (Actin FS) 31.3 Sodium Potassium Chloride Carbon Dioxide Anion Gap BUN Creatinine Creat Clearance w eGFR Random Glucose Calcium Total Bilirubin AST ALT Alkaline Phosphatase Creatine Kinase Creatine Kinase Index CK-MB (CK-2) Troponin I Total Protein Albumin Plan Continue Lovenox BID Continue ABX IV for pneumonia. Current Active Problems Problem Status Diagnosed Hemoptysis RLL PNA Acute Inspiratory pain Acute Pulmonary embolism Acute Problem List - Problems (1) Pulmonary embolism Code(s): I26.99 - OTHER PULMONARY EMBOLISM WITHOUT ACUTE COR PULMONALE Qualifiers: Chronicity: acute Acute cor pulmonale presence: without acute cor pulmonale (2) Pneumonia Code(s): J18.9 - PNEUMONIA, UNSPECIFIED ORGANISM Qualifiers: Pneumonia type: due to unspecified organism Laterality: right Lung location: lower lobe of lung Qualified Code(s): J18.1 - Lobar pneumonia, unspecified organism
--- NOTE | 2017-05-27 13:11 | PN ---
Progress Note (short form) - Note Progress Note: CC: PE 27 yo with pmhx of recent vaginal delivery 04/2017 and pna/RLL infiltrate dx during that admission who p/w pleuritic CP and noted to have PE. cough/fever/infiltrate on cxr on recent admit for vaginal delivery. sx's improved with abx but subsequently developed acute onset right sided CP, diffuse in location. pleuritic. intermittent. CP persists but improving in frequency and severity. no palps, dizziness, orthopnea, pnd, le edema, transient neurologic symptoms. no chills, sweats, n/v/d, rashes, h/a, congestion, visual disturbances. post- vaginal bleeding stable pmhx/pshx: per hpi social hx: non-smoker fam hx: no family hx of hypercoaguability ros: per hpi Current Medications Acetaminophen (Tylenol -) 650 mg PO Q6H PRN PRN Reason: pain Last Admin: 05/26/17 18:13 Dose: 650 mg Acetaminophen (Tylenol -) 325 mg PO Q6H PRN PRN Reason: PAIN 5-10 Last Admin: 05/27/17 05:52 Dose: 325 mg Enoxaparin Sodium (Lovenox -) 90 mg SQ BID RUBEN Last Admin: 05/27/17 10:00 Dose: 90 mg Guaifenesin/Codeine Phosphate (Robitussin Ac -) 5 ml PO TID PRN Last Admin: 05/27/17 10:50 Dose: 5 ml Ampicillin Sodium/Sulbactam (Sodium 1.5 gm/ Sodium Chloride) 100 mls @ 200 mls/ hr IVPB Q8H-IV RUBEN Last Admin: 05/27/17 10:00 Dose: 200 mls/hr Oxycodone HCl (Roxicodone -) 5 mg PO Q6H PRN PRN Reason: PAIN SCALE 5-10 Last Admin: 05/27/17 05:47 Dose: 5 mg Vital Signs - 24 hr 05/26/17 05/26/17 05/26/17 18:00 18:07 21:00 Temperature 100.8 F H 100.4 F H Pulse Rate 106 H Pulse Rate [ 107 H Left Radial] Respiratory 19 20 Rate Blood Pressure 105/59 Blood Pressure 120/69 [Left Arm] O2 Sat by Pulse 97 99 Oximetry (%) 05/26/17 05/27/17 05/27/17 22:00 02:41 06:00 Temperature 99.8 F H 97.8 F 99.5 F Pulse Rate 104 H 87 94 H Pulse Rate [ Left Radial] Respiratory 19 20 19 Rate Blood Pressure 102/62 100/61 103/60 Blood Pressure [Left Arm] O2 Sat by Pulse 95 Oximetry (%) 05/27/17 05/27/17 09:00 10:00 Temperature 98.4 F Pulse Rate 92 H Pulse Rate [ Left Radial] Respiratory 19 22 Rate Blood Pressure 110/62 Blood Pressure [Left Arm] O2 Sat by Pulse 100 Oximetry (%) Intake & Output 05/25/17 05/26/17 05/27/17 05/28/17 07:59 07:59 07:59 07:59 Intake Total 50 360 240 Balance 50 360 240 Weight 204 lb 179 lb 6 oz nad, calm jvd flat, neck supple rrr nl s1 s2 no mrg + bs soft nt nd ext without e/c/c + dp/pt aaox3 no jaundice, diaphoresis. no carotid bruits CBC, BMP 05/27/17 05:35 05/27/17 05:35 Laboratory Tests 05/25/17 05/26/17 05/27/17 16:59 17:30 05:35 INR D-Dimer 836 H Total Bilirubin 0.6 AST 21 ALT 21 Alkaline Phosphatase 95 Creatine Kinase 248 H Creatine Kinase Index 0.4 CK-MB (CK-2) < 1.000 Troponin I < 0.02 Albumin 2.8 L D 05/27/17 05:35 INR 1.13 D-Dimer Total Bilirubin AST ALT Alkaline Phosphatase Creatine Kinase Creatine Kinase Index CK-MB (CK-2) Troponin I Albumin ekg: nsr, rsr' variant. anterior twi vs. juvenile t waves echo 05/2017: nl lv/rv, 1+ mr/tr, rvsp 30-40 tele: SR/sinus tach. HR's around 100 chest cta, images and report reviewed. rll posterior basal segment PE with airspace disease that may be 2/2 PE/infarctino vs. pna. minimal rt pleural effusion. 27 yo with pmhx of recent vaginal delivery 04/2017 and pna/RLL infiltrate dx during that admission who p/w pleuritic CP and noted to have PE. PE - sx's improving, still remains borderline tachycardic. hemodynamically stable. - echo without evidence of rv strain. - hypercoaguability work up pending. - con't AC (patient states she is no longer breast feeding) - f/u with cardiology as outpatient for ongoing monitoring/follow up echo. - pulmonary following regarding mgm't of RLL infiltrate
--- NOTE | 2017-05-27 13:15 | PN ---
Progress Note, Physician History of Present Illness: is seen and examined today. She feels better than yesterday. She did not have further hemoptysis as per her. Her pleuritic chest pain is improved when compared to yesterday. - Current Medication List Current Medications: Active Medications Acetaminophen (Tylenol -) 650 mg PO Q6H PRN PRN Reason: pain Last Admin: 05/26/17 18:13 Dose: 650 mg Acetaminophen (Tylenol -) 325 mg PO Q6H PRN PRN Reason: PAIN 5-10 Last Admin: 05/27/17 05:52 Dose: 325 mg Enoxaparin Sodium (Lovenox -) 90 mg SQ BID RUBEN Last Admin: 05/27/17 10:00 Dose: 90 mg Guaifenesin/Codeine Phosphate (Robitussin Ac -) 5 ml PO TID PRN Last Admin: 05/27/17 10:50 Dose: 5 ml Ampicillin Sodium/Sulbactam (Sodium 1.5 gm/ Sodium Chloride) 100 mls @ 200 mls/ hr IVPB Q8H-IV RUBEN Last Admin: 05/27/17 10:00 Dose: 200 mls/hr Oxycodone HCl (Roxicodone -) 5 mg PO Q6H PRN PRN Reason: PAIN SCALE 5-10 Last Admin: 05/27/17 05:47 Dose: 5 mg - Objective Vital Signs: Vital Signs Temperature 98.4 F 05/27/17 10:00 Pulse Rate 92 H 05/27/17 10:00 Respiratory Rate 22 05/27/17 10:00 Blood Pressure 110/62 05/27/17 10:00 O2 Sat by Pulse Oximetry (%) 100 05/27/17 09:00 Constitutional: Yes: No Distress, Calm Eyes: Yes: Conjunctiva Clear HENT: Yes: Atraumatic, Normocephalic Neck: Yes: Supple, Trachea Midline Cardiovascular: Yes: Regular Rate and Rhythm Respiratory: Yes: Regular, CTA Bilaterally. No: Accessory Muscle Use Gastrointestinal: Yes: Normal Bowel Sounds, Soft, Abdomen, Obese Edema: No Labs: CBC, BMP 05/27/17 05:35 05/27/17 05:35 INR, PTT INR 1.13 (0.82-1.09) 05/27/17 05:35 Assessment/Plan Assessment/Plan: Pulmonary Embolism Possible PNA/Infarct 3weeks post- Hemoptysis. Pleuritic chest pain in the setting of PE/Pulm infarct Plan: -continue AC with lovenox bid -if she continues to be stable, will discuss about oral therapies ( Coumadin vs Newer oral anti-coagulants) -pain control for pleuritic chest pain -will follow-up on the Lupus and IRVING -Will send out genetic tests as an OP -TTE reviewed, RVP 30, pulm follow-up. -On IV abx for PNA -gave our office info to the patient and advised to follow-up with us.
--- NOTE | 2017-05-27 20:02 | CON.OBG ---
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 to have cough, now admitted for PE,no von heparin,has mild vaginal bleeding, no clots, no pain.,no calf tenderness. 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: Alzheimer's, CVA, Dementia, Migraine, Multiple Sclerosis, Peripheral Neuropathy, Parkinson's, Seizure, Syncope, TIA, Vertigo, Other Cardio/Vascular: No: AFIB, Aneurysm, Aortic Insufficiency, Aortic Stenosis, CAD , CHF, Deep Vein Thrombosis, HTN, Hyperlipdemia, ID, Mitral Insufficiency, Mitral Stenosis, Murmur, Pulmonary Hypertension, Other Pulmonary: Yes: Other (Acute bronchitis) Gastrointestinal: No: Ascites, Cancer, Constipation, Crohn's Disease, Diverticulitis, Diverticulosis, Esophageal Varices, Gastritis, GERD, GI Bleed, Hemorrhoids, Hiatal Hernia, Inflamatory Bowel Disease, Irritable Bowel Disease, Pancreatitis, Peptic Ulcer Disease, Ulcerative Colitis, Other Hepatobiliary: No: Cirrhosis, Cholelithiasis, Cholecystitis, Choledocholithiasis , Hepatitis A, Hepatitis B, Hepatitis C, Other Renal/: No: Renal Failure, Renal Inusuff, BPH, Cancer, Hematuria, Hemodialysis , Neurogenic Bladder, Renal Calculi, UTI, Other ...: (POST 05/01/17) Psych: No: Addictions, Anxiety, Bipolar, Depression, Panic, Psychosis, Schizophrenia, Other ENT: No: Allergic Rhinitis, Sinusitis, Other Endocrine: No: Brayden's Disease, [place]'s Disease, Diabetes Insipidus, Diabetes Mellitus, Hyperparathyroidism, Hyperthyroidism, Hypothyroidism, Osteopenia, SIADH, Other - Past Surgical History Past Surgical History: Yes: None - Alcohol/Substance Use Hx Alcohol Use: No History of Substance Use: reports: None - Smoking History Smoking history: Never smoked Have you smoked in the past 12 months: No - Social History Usual Living Arrangement: With Spouse ADL: Independent History of Recent Travel: No Home Medications - Allergies Allergies/Adverse Reactions: Allergies Allergy/AdvReac Type Severity Reaction Status Date / Time No Known Allergies Allergy Verified 05/25/17 16:04 - Home Medications Home Medications: Ambulatory Orders Amoxicillin/Potassium Clav [Augmentin 875-125 Tablet] 1 each PO BID 05/25/17 Brompheniramine/Pseudoephed/Dm [Ghatghboyc-Xuoosrjapqe-Xs Syr] 10 ml PO QID 04/05 Review of Systems - Review of Systems Constitutional: reports: No Symptoms Eyes: reports: No Symptoms HENT: reports: No Symptoms Neck: reports: No Symptoms Cardiovascular: reports: No Symptoms Respiratory: reports: No Symptoms Gastrointestinal: reports: No Symptoms Genitourinary: reports: No Symptoms Breasts: reports: No Symptoms Reported Integumentary: reports: No Symptoms Neurological: reports: No Symptoms Endocrine: reports: No Symptoms Hematology/Lymphatic: reports: No Symptoms Psychiatric: reports: No Symptoms Physical Exam-HEAD OF TRANSPORT LOGISTICS Vital Signs: Vital Signs Temperature 98.3 F 05/27/17 15:45 Pulse Rate 91 H 05/27/17 15:45 Respiratory Rate 22 05/27/17 10:00 Blood Pressure 106/57 05/27/17 15:45 O2 Sat by Pulse Oximetry (%) 100 05/27/17 09:00 Constitutional: Yes: Well Nourished, No Distress, Calm Eyes: Yes: WNL, Conjunctiva Clear, EOM Intact HENT: Yes: WNL, Atraumatic, Normocephalic Neck: Yes: WNL, Supple, Trachea Midline Cardiovascular: Yes: WNL, Regular Rate and Rhythm Respiratory: Yes: WNL, Regular, CTA Bilaterally Gastrointestinal: Yes: WNL ...Rectal Exam: Yes: WNL Renal/: Yes: WNL External Genitalia: Yes: Normal Vaginal Exam: Yes: Bleeding (small bloody dischsrge) ....Post : Yes: Uterus firm, Uterus non-tender Breast(s): Yes: WNL Musculoskeletal: Yes: WNL Extremities: Yes: WNL Edema: No Integumentary: Yes: WNL Neurological: Yes: WNL, Alert, Oriented ...Motor Strength: WNL Psychiatric: Yes: WNL, Alert, Oriented Labs: CBC, BMP 05/27/17 05:35 05/27/17 05:35 Problem List - Problems (1) Pulmonary embolism Code(s): I26.99 - OTHER PULMONARY EMBOLISM WITHOUT ACUTE COR PULMONALE Qualifiers: Chronicity: acute Acute cor pulmonale presence: without acute cor pulmonale (2) Vaginal bleeding Code(s): N93.9 - ABNORMAL UTERINE AND VAGINAL BLEEDING, UNSPECIFIED Assessment/Plan has small vaginal bleeding ,most likly normal, monitor INR, if heavy vaginal bleeding or anemia will revaluate
[2017-05-28] MEDS ORDERED: PT OWN MED DRAWER 7, Y5N ONE ×2 (01:22→09:25)
[2017-05-28] MEDS: AMPICILLIN NA/SULBACTAM NA 1.5 GM in SODIUM CHLORIDE 100 ML IVPB SCH ×2 (01:28→09:27)
[2017-05-28] MEDS: guaiFENesin/CODEINE 5 ML UNIT-DOSE CUPS PO PRN (01:28)
--- NOTE | 2017-05-28 08:39 | PN ---
Progress Note (short form) - Note Progress Note: Feels well, no chest pain. 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 Wants to go home. Vital Signs - 24 hr 05/27/17 05/27/17 05/27/17 09:00 10:00 15:45 Temperature 98.4 F 98.3 F Pulse Rate 92 H 91 H Respiratory 19 22 Rate Blood Pressure 110/62 106/57 O2 Sat by Pulse 100 Oximetry (%) 05/27/17 05/27/17 05/27/17 18:00 21:00 22:00 Temperature 99.1 F 99.6 F Pulse Rate 97 H 107 H Respiratory 20 18 Rate Blood Pressure 111/61 136/66 O2 Sat by Pulse 98 98 Oximetry (%) 05/28/17 05/28/17 02:00 06:00 Temperature 98.5 F 98.7 F Pulse Rate 105 H 88 Respiratory 20 18 Rate Blood Pressure 92/59 101/58 O2 Sat by Pulse 100 Oximetry (%) Lungs are Clear. Heart s1S2 regular Abdomen soft, NT imp Current Active Problems Problem Status Diagnosed Hemoptysis Acute Inspiratory pain RLL PNAPlan Acute Pulmonary embolism Acute Vaginal bleeding Acute D/c on PO Eliquis Augmentin PO F/u in the office, cardiology, hematology Problem List - Problems (1) Pulmonary embolism Code(s): I26.99 - OTHER PULMONARY EMBOLISM WITHOUT ACUTE COR PULMONALE Qualifiers: Chronicity: acute Acute cor pulmonale presence: without acute cor pulmonale (2) Pneumonia Code(s): J18.9 - PNEUMONIA, UNSPECIFIED ORGANISM Qualifiers: Pneumonia type: due to unspecified organism Laterality: right Lung location: lower lobe of lung Qualified Code(s): J18.1 - Lobar pneumonia, unspecified organism
--- NOTE | 2017-05-28 08:40 | DS ---
Physical Examination Vital Signs: Vital Signs Temperature 98.7 F 05/28/17 06:00 Pulse Rate 88 05/28/17 06:00 Respiratory Rate 18 05/28/17 06:00 Blood Pressure 101/58 05/28/17 06:00 O2 Sat by Pulse Oximetry (%) 100 05/28/17 06:00 Constitutional: Yes: No Distress, Calm Eyes: Yes: Conjunctiva Clear, EOM Intact HENT: Yes: Atraumatic, Normocephalic Neck: Yes: Supple, Trachea Midline Cardiovascular: Yes: WNL Respiratory: Yes: WNL Gastrointestinal: Yes: WNL ...Rectal Exam: Yes: Deferred Renal/: Yes: WNL Musculoskeletal: Yes: WNL Extremities: Yes: WNL Edema: No Peripheral Pulses WNL: Yes ...Motor Strength: WNL Psychiatric: Yes: WNL Labs: CBC, BMP 05/27/17 05:35 05/27/17 05:35 Discharge Summary Reason For Visit: PULMONARY EMBOLISM INSPIRATORY PAIN, RLL PNA Current Active Problems Hemoptysis (Acute) Inspiratory pain (Acute) Pulmonary embolism (Acute) Vaginal bleeding (Acute) Condition: Improved - Instructions Disposition: HOME - Home Medications Comprehensive Discharge Medication List: Ambulatory Orders Amoxicillin/Potassium Clav [Augmentin 875-125 Tablet] 1 each PO BID 05/25/17 Brompheniramine/Pseudoephed/Dm [Xbnmtxiwlx-Higzmxxrjty-Wp Syr] 10 ml PO QID 04/05
[2017-05-28] MEDS: ENOXAPARIN NA (PORCINE) 100 MG/1 ML DISP.SYRIN SQ SCH (09:27)
--- NOTE | 2017-05-28 10:57 | PN ---
Progress Note (short form) - Note Progress Note: - Note Progress Note: CC: PE s: no cp sob palps dizzy Current Medications Generic Name Dose Route Start Last Admin Trade Name Daniel PRN Reason Stop Dose Admin Acetaminophen 650 mg 05/26/17 11:17 05/26/17 18:13 Tylenol - PO 650 mg Q6H PRN Administration pain Acetaminophen 325 mg 05/26/17 19:39 05/27/17 05:52 Tylenol - PO 325 mg Q6H PRN Administration PAIN 5-10 Enoxaparin Sodium 90 mg 05/27/17 10:00 05/28/17 09:27 Lovenox - SQ 90 mg BID RUBEN Administration Ampicillin Sodium/Sulbactam 100 mls @ 200 mls/hr 05/26/17 10:00 05/28/17 09:27 Sodium 1.5 gm/ Sodium Chloride IVPB 200 mls/hr Q8H-IV RUBEN Administration Oxycodone HCl 5 mg 05/26/17 19:39 05/27/17 05:47 Roxicodone - PO 5 mg Q6H PRN Administration PAIN SCALE 5-10 Vital Signs Period Temp Pulse Resp BP Sys/Barnes Pulse Ox Last 24 Hr 98.3 F-99.6 F 88-107 18-20 92-136/57-66 98-100 nad, calm jvd flat, neck supple rrr nl s1 s2 no mrg ext without e/c/c aaox3 no jaundice, diaphoresis CBC, BMP 05/27/17 05:35 05/27/17 05:35 ekg: nsr, rsr' variant. anterior twi vs. juvenile t waves echo 05/2017: nl lv/rv, 1+ mr/tr, rvsp 30-40 tele: SR/sinus tach. chest cta, images and report reviewed. rll posterior basal segment PE with airspace disease that may be 2/2 PE/infarctino vs. pna. minimal rt pleural effusion. a/p: 27 yo with pmhx of recent vaginal delivery 04/2017 and pna/RLL infiltrate dx during that admission who p/w pleuritic CP and noted to have PE. PE - sx's improved, hemodynamically stable. - echo without evidence of rv strain. - hypercoaguability work up pending. - con't AC (patient states she is no longer breast feeding) - f/u with cardiology as outpatient for ongoing monitoring/follow up echo. - pulmonary following regarding mgm't of RLL infiltrate cardiac heredia stable for dc
--- NOTE | 2017-05-28 11:11 | PN ---
Progress Note (short form) - Note Progress Note: Pt discharged early this am. Cardiology note evaluated. Was discharged on Eliquis. During the previous encounter, did advise pt not to breast feed when on oral blood thinners. Office info given on 05/27 to the patient.
[2017-05-28 11:12] VITALS: BP 122/67; PULSE 98; TEMP 98.9
--- NOTE | 2017-05-28 14:48 | EKG ---
Test Reason : Blood Pressure : / mmHG Vent. Rate : 084 BPM Atrial Rate : 084 BPM P-R Int : 136 ms QRS Dur : 080 ms QT Int : 346 ms P-R-T Axes : 046 037 018 degrees QTc Int : 408 ms POOR DATA QUALITY, INTERPRETATION MAY BE ADVERSELY AFFECTED NORMAL SINUS RHYTHM NORMAL ECG NO PREVIOUS ECGS AVAILABLE Confirmed by BREE FENG MD ([id number]) on 05/28/2017 2:48:10 PM Referred By: Confirmed By:BREE FENG MD
[2017-05-29 14:15] LABS: LAC INTERPRETATION Comment: (.); PTT-LA MIX 52.9 sec (0.0-48.9)
== END 2017-05-28 11:05 | disposition home or self-care (01) | DRG 561 ==
LOC: JER 15:41 → JERBED 22:00 → J4W 05-26 18:50
PROVIDERS: ADMIT Internal Medicine; ATTEND Internal Medicine
DX: O88.83 Other embolism in the puerperium (principal); O90.89 Other complications of the puerperium, not elsewhere classified; J18.9 Pneumonia, unspecified organism; R07.1 Chest pain on breathing; R05 Cough; I27.2 Other secondary pulmonary hypertension; J90 Pleural effusion, not elsewhere classified; R00.0 Tachycardia, unspecified; O86.4 Pyrexia of unknown origin following delivery; O72.1 Other immediate postpartum hemorrhage
CPT/HCPCS: 36415; 71020-TC; 71275-TC; 80053; 81003; 81015; 82553; 84484; 84703; 85025; 85379; 85610; 85613; 85730; 85732; 86038; 93005; 93010; 93306-TC; 93970-TC; 99285-25

== ENCOUNTER 2018-05-16 10:43 | Emergency (ER) | payer SELFPAY ==
--- NOTE | 2018-05-16 10:55 | PDOC ---
Attending Attestation - HPI HPI: 05/16/18 11:04 The patient is a 28 year old female, with a significant past medical history of PE(05/25/17), who presents to the emergency department with acute onset of shortness of breath earlier this morning. The patient reports she began to develop cramping in her arms and hands bilaterally earlier this morning with associated hyperventilation/shortness of breath. She denies any chest pain, diaphoresis, palpitations, or lower extremity edema. She denies any fever, chills, cough, headache, or dizziness. She denies any abdominal pain, nausea, vomiting, or hemoptysis. Patient reports her LMP was less than a month ago. Patient reports she does not feel anxious, and denies any recent stressors. Allergies: NKDA - Medical Decision Making 05/16/18 11:04 Documentation prepared by Silvia Florez, acting as medical officer for Danita Elliott MD. <Silvia Florez - Last Filed: 05/16/18 11:04> - Resident Resident Name: Janessa Collado - ED Attending Attestation I have performed the following: I have examined & evaluated the patient, The case was reviewed & discussed with the resident, I agree w/resident's findings & plan, Exceptions are as noted - Physicial Exam PE: GENERAL: Awake, alert, and fully oriented. Appears anxious, answers questions by nodding or shaking head. Very few verbal responses. HEAD: No signs of trauma EYES: PERRLA, EOMI, sclera anicteric, conjunctiva clear ENT: Auricles normal inspection, hearing grossly normal, nares patent, oropharynx clear without exudates. Moist mucosa NECK: Normal ROM, supple, no lymphadenopathy, JVD, or masses LUNGS: Breath sounds equal, clear to auscultation bilaterally. No wheezes, and no crackles HEART: Regular rate and rhythm, normal S1 and S2, no murmurs, rubs or gallops ABDOMEN: Soft, nontender, normoactive bowel sounds. No guarding, no rebound. No masses EXTREMITIES: Normal range of motion, no edema. No clubbing or cyanosis. No cords, erythema, or tenderness NEUROLOGICAL: Cranial nerves II through XII grossly intact. Normal speech. Motor and sensation intact. SKIN: Warm, Dry, normal turgor, no rashes or lesions noted. - Medical Decision Making Pt with history of PE 1 year ago, resolved in a follow-up CTA in September 2017. The PE occurred 1 month , so she is technically lower risk this time, however, the presentation is suggestive of PE. She has stable vital signs and O2Sat 100% on room air. Will obtain labs and plan for CTA. <Danita Elliott - Last Filed: 05/16/18 11:26> Heart Score/ECG Review - ECG Impressions Comment:: EKG read 11:09- NSR 84 bpm, no acute ST/T changes <Danita Elliott - Last Filed: 05/16/18 11:26>
--- NOTE | 2018-05-16 11:10 | PDOC ---
History of Present Illness - General Stated Complaint: ANXIETY Time Seen by Provider: 05/16/18 10:50 History Source: EMS, Family Exam Limitations: Clinical Condition - History of Present Illness Initial Comments: 05/16/18 11:02 History was performed via EMS and pt's sister in law. 28 year old female with PMH PE presents to ED complaining of SOB, dizziness today. Her sister in law states that she was on the phone, stated she felt dizzy and lied on the floor, denies head injury. 05/16/18 13:37 Pt reassessed. States she was on the phone today, felt palpitations, and then began to feel dizzy + SOB and lied on the floor. Denies chest pain, headache, nausea vomiting. Past History - Past Medical History Allergies/Adverse Reactions: Allergies Allergy/AdvReac Type Severity Reaction Status Date / Time No Known Allergies Allergy Verified 05/25/17 16:04 Home Medications: Ambulatory Orders Amoxicillin/Potassium Clav [Augmentin 875-125 Tablet] 1 each PO BID 05/25/17 Brompheniramine/Pseudoephed/Dm [Ttlkbqgyqn-Vdftfhovrgb-Sl Syr] 10 ml PO QID 04/05 Apixaban [Eliquis] 5 mg PO BID #60 tablet 05/28/17 Asthma: No Cancer: No Cardiac Disorders: No Diabetes: No HTN: No Seizures: No Thyroid Disease: No - Immunization History Immunization Up to Date: Yes - Suicide/Smoking/Psychosocial Hx Smoking History: Never smoked Have you smoked in the past 12 months: No Hx Alcohol Use: No Drug/Substance Use Hx: No Substance Use Type: None Hx Substance Use Treatment: No Review of Systems - Review of Systems Able to Perform ROS?: Yes Comments:: 05/16/18 11:00 Unable to perform ROS due to patient's mental status. 05/16/18 11:10 Pt re-examined, will shake her head yes or no to questions. General: denies fever, chills, night sweats, generalized weakness. HEENT: denies sore throat, rhinorrhea, ear pain. Heart: denies chest pain, palpitations, syncope, lower extremity swelling. Respiratory: admits to shortness of breath. denies cough, sputum production, hematemesis. Abdomen: denies abdominal pain, nausea, vomiting, diarrhea, constipation, blood in stool. : denies dysuria, urinary frequency, hematuria. Musculoskeletal: admits to bilateral leg pain. Neurological: admits to dizziness, all four extremity numbness. denies headache. Skin: denies rash, laceration, abrasion. *Physical Exam - Physical Exam Comments: 05/16/18 11:00 Appearance: pt is hyperventilating, laying flat in bed with her arms contracted. HEENT: head is normocephalic, atraumatic. eyes closed. Neck: supple. Full ROM. Heart: regular rhythm. no murmurs, rubs or gallops. Lungs: clear to auscultation bilaterally. no crackles, rhonchi or wheezing. no stridor. Abdomen: soft, nontender. normal bowel sounds. no rebound, guarding, masses. Extremities: No lower extremity edema. No calf swelling bilaterally. Neurological: Awake. CN 2-12 grossly intact. On re-examination: 11:07 Appearance: pt is no longer hyperventilating. arms uncontracted. Neurological: awake. responds to voice with head motion. Extremities: No calf tenderness bilaterally. Neurological: No sensation bilateral upper and lower extremities. 05/16/18 11:42 Appearance: no hyperventilation. arma uncontracted. Neurological: awake. responding to voice with verbal responses. Full sensation bilateral face and bilateral upper extremities. No sensation bilateral lower extremities. Awake. alert. 1/5 strength all extremities. When attempting to lift the left and right leg pt's quadracep contracts. When attempting to lift the right and left arm, pt's trapezius and deltoid muscle contracts. 05/16/18 13:36 HEENT: EOMI. PERRLA. Neuro: awake, alert & oriented x3. 5/5 strength all extremities. Full sensation all extremities and bilateral face. CN2-12 intact. Finger to nose normal. ED Treatment Course - LABORATORY CBC & Chemistry Diagram: 05/16/18 10:45 05/16/18 10:45 Medical Decision Making - Medical Decision Making 05/16/18 11:13 28 year old female with PMH PE x1 year ago post- presents for SOB, dizziness, upper extremity contracture. Pt is not anticoagulated. Tachypnea. No tachycardia - 78 bpm. No hypoxia - 100% on room air. No hypotension - 112/82. Non-rebreather with no oxygen given, with improvement of arm contraction. 10L O2 on Non-rebreather added. PE cannot be ruled out based on PERC criteria. Pending labs. If preg (-), will CTA chest to rule out PE. 05/16/18 11:36 Coags mildly elevated. INR 1.17. PT 13.2. 05/16/18 11:45 Pt is now responding verbally to questions. States she is currently menstruating. Serum negative. CTA pending. 05/16/18 13:36 Pt reassessed, denies SOB, states she is feeling better. 05/16/18 15:31 CTA Preliminary report - no evidence of pulmonary embolism Pt will be discharged home with instructions to follow up with her PCP. *DC/Admit/Observation/Transfer Diagnosis at time of Disposition: Shortness of breath - Discharge Dispostion Disposition: HOME Condition at time of disposition: Improved Decision to Admit order: No - Referrals - Patient Instructions Additional Instructions: You were seen today for shortness of breath. Your labs were normal. Your EKG was normal. Your CT of your chest was normal, there was no evidence of pulmonary embolism. Please follow up with your primary care provider within 7 days, and bring the paperwork given to you today with you. Please return to the Emergency Department for any new, worsening or concerning symptoms. - Post Discharge Activity Forms/Work/School Notes: Back to Work
[2018-05-16 11:17] LABS: BASO % 0.8 % (0-2.0); EOS % 0.5 % (0-4.5); HEMATOCRIT 36.8 % (32.4-45.2); MCH 25.6 pg (25.7-33.7); MCHC 32.7 g/dl (32.0-36.0); MEAN CELL VOLUME 78.3 fl (80-96); MEAN PLT VOLUME 8.9 fl (7.5-11.1); MONO % 6.4 % (3.8-10.2); NEUT % 62.3 % (42.8-82.8); PLATELET COUNT 276 K/MM3 (134-434); RDW 16.7 % (11.6-15.6); WHITE BLOOD COUNT 6.7 K/mm3 (4.0-10.0)
[2018-05-16 11:28] LABS: INR 1.17 (0.82-1.09); PROTHROMBIN TIME (PATIENT) 13.2 SEC (9.7-13.0)
[2018-05-16 11:52] LABS: ANION GAP 14 (8-16); BILIRUBIN,TOTAL 0.6 mg/dL (0.2-1.0); BLOOD UREA NITROGEN 10 mg/dL (7-18); CALCIUM 9.3 mg/dL (8.5-10.1); CHLORIDE 109 mmol/L (98-107); CO2 20 mmol/L (21-32); CREATININE 0.9 mg/dL (0.55-1.02); GLUCOSE,RANDOM 80 mg/dL (74-106); POTASSIUM 3.3 mmol/L (3.5-5.1); SGOT/AST 16 U/L (15-37); SGPT/ALT 14 U/L (12-78); SODIUM 143 mmol/L (136-145)
[2018-05-16 11:55] VITALS: BMI 22.7
[2018-05-16 12:01] LABS: ALK PHOS 62 U/L (45-117)
[2018-05-16 15:43] VITALS: BP 104/75; PULSE 92; TEMP 98.3
--- NOTE | 2018-05-18 10:35 | EKG ---
Test Reason : Blood Pressure : / mmHG Vent. Rate : 084 BPM Atrial Rate : 084 BPM P-R Int : 132 ms QRS Dur : 088 ms QT Int : 386 ms P-R-T Axes : 048 060 044 degrees QTc Int : 456 ms NORMAL SINUS RHYTHM NORMAL ECG WHEN COMPARED WITH ECG OF 25-MAY-2017 15:54, NO SIGNIFICANT CHANGE WAS FOUND Confirmed by AISHA CORONADO MD ([id number]) on 05/18/2018 10:35:16 AM Referred By: Confirmed By:AISHA CORONADO MD
== END 2018-05-16 15:50 | disposition home or self-care (01) ==
LOC: JER 10:43
DX: R06.4 Hyperventilation (principal); R06.02 Shortness of breath; Z86.711 Personal history of pulmonary embolism; Z79.01 Long term (current) use of anticoagulants
CPT/HCPCS: 36415; 71275-TC; 80053; 84443; 84703; 85025; 85610; 86850; 86900; 86901; 93005; 93010; 99283-25